=== PATIENT | female | born 1985 | race Caucasian/White ===

== ENCOUNTER 2019-03-05 16:53 | Emergency (ER) | payer MEDICARE, MEDICAID ==
[~2019-03-05] VITALS: Ht 162.6 cm; Wt 88.5 kg
[~2019-03-05 16:53] MED LIST: ALPR0.25 PO; APIX5TAB PO; ARIP1TAB9 PO; CYCL1POW25 XX; DIVA125T12 PO; DULO60CA PO; HYDR2TAB58 PO; IVAB1.7T PO; LEVE500T22 PO; MAGN400T5 PO; OME20T PO; OXYC1CAP5 PO; TIOT1AER2 IN
[2019-03-05 20:49] LABS: Basophils # (auto) 0 uL; Basophils % (auto) 0.6 % (0.0-2.0); Eosinophils # (auto) 0 uL; Eosinophils % (auto) 0.7 % (0.0-7.0); Hemoglobin 13.4 g/dL (12.2-16.2); Lymphocytes # (auto) 1.9 uL; Lymphocytes % (auto) 46.2 % (10.0-50.0); Mean Corpuscular Hgb Conc. 32.6 g/dL (32.0-36.0); Mean Corpuscular Volume 89.2 fL (80.0-100.0); Monocytes # (auto) 0.5 uL; Monocytes % (auto) 11.7 % (0.0-12.0); Neutrophils # (auto) 1.6 uL; Neutrophils % (auto) 40.8 % (37.0-80.0); Nucleated Red Blood Cells % 0.1 %; Platelet Count (auto) 226 10^3/uL (140-450); Red Cell Distribution Width 15.4 % (11.8-14.3)
[2019-03-05 21:07] LABS: Albumin 3.3 g/dL (3.4-5.0); Calcium 8.3 mg/dL (8.5-10.1)
[2019-03-05 21:09] LABS: Bilirubin, Total 0.2 mg/dL (0.2-1.0); Total Protein 8.1 g/dL (6.4-8.2)
[2019-03-06 00:13] VITALS: BP 116/70
== END 2019-03-06 02:27 | disposition left against medical advice (07) ==
LOC: ER 16:56
DX: R05 Cough (principal); Z53.21 Procedure and treatment not carried out due to patient leaving prior to being seen by health care provider
CPT/HCPCS: 36415; 71045; 80053; 84702; 85025

== ENCOUNTER 2020-03-25 11:33 | Inpatient (IN) | payer MEDICARE, MEDICAID ==
[~2020-03-25] VITALS: Ht 218.4 cm; Wt 86.5 kg
[2020-03-25 01:32] VITALS: BP 113/67
[~2020-03-25 11:33] MED LIST changes: -LEVE500T22 PO; +LEVE500T32 PO; +MAGN400T40 PO; -MAGN400T5 PO
[2020-03-25] MEDS ORDERED: AZITHROMYCIN 500MG/ 250ML 250 ML IV ONE (11:45)
[2020-03-25] MEDS ORDERED: ASCORBIC ACID 500 MG TAB PO ONE (11:45)
[2020-03-25] MEDS ORDERED: ZINC SULFATE 220mg CAP or TAB PO ONE (11:45)
[2020-03-25] MEDS ORDERED: methylPREDNISolone SOD SUCC 125 MG/2 ML VL IV ONE (11:45)
[2020-03-25] MEDS ORDERED: ACETAMINOPHEN 325 MG TAB PO ONE (12:45)
[2020-03-25] MEDS ORDERED: ENOXAPARIN SOD 100 MG/1 ML SYRINGE SC ONE ×2 (14:00→14:45)
[2020-03-25 15:22] LABS: Basophils # (auto) 0 10 ^3/uL (0-0.2); Basophils % (auto) 0.3 % (0.0-2.0); Eosinophils # (auto) 0 10 ^3/uL (0-0.8); Eosinophils % (auto) 0.1 % (0.0-7.0); Hematocrit 39.4 % (36.0-46.0); Hemoglobin 13.7 g/dL (12.2-16.2); Lymphocytes # (auto) 1.6 10 ^3/uL (0.4-5.4); Lymphocytes % (auto) 37.4 % (10.0-50.0); Mean Corpuscular Hemoglobin 31.6 pg (28.0-32.0); Mean Corpuscular Hgb Conc. 34.8 g/dL (32.0-36.0); Mean Corpuscular Volume 90.9 fL (80.0-100.0); Monocytes # (auto) 0.5 10 ^3/uL (0-1.3); Monocytes % (auto) 11.6 % (0.0-12.0); Neutrophils # (auto) 2.1 10 ^3/uL (1.6-8.6); Neutrophils % (auto) 50.6 % (37.0-80.0); Nucleated Red Blood Cells % 0.2 %; Platelet Count (auto) 236 10^3/uL (140-450); Red Blood Cells 4.33 10^6/uL (4.0-5.20); Red Cell Distribution Width 15.1 % (11.8-14.3); White Blood Cell 4.2 10^3/uL (4.4-10.8)
[2020-03-25 15:32] LABS: Albumin 3.1 g/dL (3.4-5.0); Anion Gap 8 (5-15); Blood Urea Nitrogen 11 mg/dL (7-18); Calcium 8.1 mg/dL (8.5-10.1); Carbon Dioxide 25 mmol/L (21-32); Chloride 105 mmol/L (98-107); Glucose 83 mg/dL (74-106); Potassium 3.4 mmol/L (3.5-5.1); Sodium 138 mmol/L (136-145)
[2020-03-25 15:38] LABS: Alanine Aminotransferase 40 U/L (13-56); Alkaline Phosphatase 79 U/L (45-117); Aspartate Aminotransferase 21 U/L (15-37); BUN/Creatinine Ratio 22.9; Bilirubin, Total 0.3 mg/dL (0.2-1.0); CRP High Sensitivity 0.54 mg/dL (< 0.3); GFR African American 190 mL/min; GFR Non-African American 157 mL/min; Lactate Dehydrogenase 161 U/L (84-246); Total Protein 7.6 g/dL (6.4-8.2)
[2020-03-25] MEDS ORDERED: NITROGLYCERIN 0.4 MG SL TAB SL PRN (16:00)
[2020-03-25] MEDS ORDERED: MORPHINE SULF INJ 2 MG/ML SYRINGE 1ML IV PRN (16:00)
[2020-03-25] MEDS: HYDROmorphone HCL 2 MG TAB PO SCH (17:56)
[2020-03-25] MEDS ORDERED: PROMETHAZINE HCL 25 MG/ML 1ML IV ONE (21:00)
[2020-03-25] MEDS ORDERED: ALBUTEROL SULF HFA 90MCG INH 200DOSE IN SCH (22:00)
[2020-03-25] MEDS ORDERED: APIXABAN 5 MG TAB PO SCH (22:00)
[2020-03-25] MEDS: BUDESONIDE (INHALATION) 180 MCG IH IN SCH (22:00)
[2020-03-25] MEDS: levETIRAcetam 500 MG TAB PO SCH ×2 (22:00→22:34)
[2020-03-25] MEDS: ALBUTEROL SULF HFA 90MCG INH 200DOSE IN SCH (22:00)
[2020-03-25] MEDS ORDERED: ALPRAZolam 0.25 MG TAB PO PRN (22:00)
[2020-03-25] MEDS: DOXYCYCLINE 100MG/250ML 250 ML IV SCH (22:33)
[2020-03-25] MEDS: IVABRADINE 5 MG TAB PO SCH (22:33)
[2020-03-25 23:40] VITALS: BP 113/67
[2020-03-26] MEDS: HYDROmorphone HCL 2 MG TAB PO SCH ×5 (00:21→23:48)
[2020-03-26 00:22] VITALS: BP 103/64
[2020-03-26] MEDS ORDERED: CYA100I PO (01:29)
[2020-03-26] MEDS ORDERED: MIRT30TA PO (01:29)
[2020-03-26] MEDS ORDERED: ALBUAER3 IN (01:29)
[2020-03-26] MEDS ORDERED: DICY10CA12 PO (01:29)
[2020-03-26] MEDS ORDERED: FURO20TA3 PO (01:29)
[2020-03-26] MEDS ORDERED: POTA10TA51 PO (01:29)
[2020-03-26] MEDS ORDERED: HYDR2TAB58 PO (01:29)
[2020-03-26] MEDS ORDERED: METH750T3 PO (01:29)
[2020-03-26] MEDS ORDERED: LORazepam 2MG/ML-1ML VIAL IV PRN (04:45)
[2020-03-26 05:43] LABS: Urine Bacteria FEW /hpf (None Seen); Urine Blood Negative /uL (Negative); Urine Mucus FEW (None Seen); Urine Specific Gravity 1.013 (1.001-1.035); Urine WBC 43 /hpf (0 - 5)
[2020-03-26] MEDS: ALBUTEROL SULF HFA 90MCG INH 200DOSE IN SCH ×3 (05:49→21:13)
[2020-03-26] MEDS: BUDESONIDE (INHALATION) 180 MCG IH IN SCH ×2 (05:49→21:14)
[2020-03-26 06:13] VITALS: BP 107/63
[2020-03-26 07:30] LABS: Basophils # (auto) 0 10 ^3/uL (0-0.2); Basophils % (auto) 0.1 % (0.0-2.0); Eosinophils # (auto) 0 10 ^3/uL (0-0.8); Hematocrit 41.3 % (36.0-46.0); Hemoglobin 13.9 g/dL (12.2-16.2); Lymphocytes # (auto) 1.2 10 ^3/uL (0.4-5.4); Mean Corpuscular Hemoglobin 30.7 pg (28.0-32.0); Mean Corpuscular Hgb Conc. 33.7 g/dL (32.0-36.0); Mean Corpuscular Volume 90.9 fL (80.0-100.0); Monocytes # (auto) 0.3 10 ^3/uL (0-1.3); Monocytes % (auto) 9.3 % (0.0-12.0); Neutrophils # (auto) 1.7 10 ^3/uL (1.6-8.6); Neutrophils % (auto) 53.6 % (37.0-80.0); Nucleated Red Blood Cells % 0.5 %; Platelet Count (auto) 250 10^3/uL (140-450); Red Blood Cells 4.55 10^6/uL (4.0-5.20); Red Cell Distribution Width 15.5 % (11.8-14.3); White Blood Cell 3.2 10^3/uL (4.4-10.8)
[2020-03-26] MEDS ORDERED: LEVO50TA7 PO (07:41)
[2020-03-26 07:49] LABS: Potassium 3.7 mmol/L (3.5-5.1)
[2020-03-26 07:55] LABS: Albumin 3.1 g/dL (3.4-5.0); Calcium 8.5 mg/dL (8.5-10.1)
[2020-03-26 07:58] LABS: Bilirubin, Total 0.3 mg/dL (0.2-1.0); Total Protein 8.1 g/dL (6.4-8.2)
[2020-03-26 08:00] VITALS: BP 111/78
[2020-03-26] MEDS: levETIRAcetam 500 MG TAB PO SCH ×2 (10:00→23:16)
[2020-03-26] MEDS: DexAMETHasone SOD PHOS 10MG/1ML VIAL INJ IV SCH (10:30)
[2020-03-26] MEDS: ZINC SULFATE 220mg CAP or TAB PO SCH (10:30)
[2020-03-26] MEDS: DOXYCYCLINE 100MG/250ML 250 ML IV SCH ×2 (10:30→22:18)
[2020-03-26] MEDS: DULoxetine HCL 30 MG CAP PO SCH (10:32)
[2020-03-26] MEDS: ENOXAPARIN SOD 100 MG/1 ML SYRINGE SC SCH ×2 (10:32→22:19)
[2020-03-26] MEDS: IVABRADINE 5 MG TAB PO SCH ×2 (10:32→22:18)
[2020-03-26] MEDS: MAGNESIUM OXIDE 400 MG TAB PO SCH (10:35)
[2020-03-26] MEDS: ASCORBIC ACID 1,000 MG TAB PO SCH (10:35)
[2020-03-26] MEDS: CHOLECALCIFEROL (VITD3) 2,000 UNIT CAP PO SCH (10:35)
[2020-03-26] MEDS: PANTOPRAZOLE 40 MG TAB PO SCH ×2 (10:36→22:18)
[2020-03-26 12:00] VITALS: BP 121/63
[2020-03-26] MEDS: METHOCARBAMOL 500 MG TAB PO SCH ×2 (12:00→18:00)
[2020-03-26 16:44] VITALS: BP 118/68
[2020-03-26] MEDS: ALPRAZolam 0.25 MG TAB PO PRN (20:59)
[2020-03-26 22:00] VITALS: BP 114/75
[2020-03-27] MEDS: METHOCARBAMOL 500 MG TAB PO SCH ×5 (00:19→23:56)
[2020-03-27 05:00] VITALS: BP 115/74
[2020-03-27] MEDS: HYDROmorphone HCL 2 MG TAB PO SCH ×4 (05:56→23:56)
[2020-03-27] MEDS: ALBUTEROL SULF HFA 90MCG INH 200DOSE IN SCH ×3 (06:14→21:38)
[2020-03-27] MEDS: BUDESONIDE (INHALATION) 180 MCG IH IN SCH ×2 (06:15→21:38)
[2020-03-27] MEDS: LEVOTHYROXINE SODIUM 50 MCG TAB PO SCH (08:01)
[2020-03-27 08:53] VITALS: BP 107/64
[2020-03-27] MEDS: levETIRAcetam 500 MG TAB PO SCH ×3 (10:00→22:00)
[2020-03-27] MEDS: DexAMETHasone SOD PHOS 10MG/1ML VIAL INJ IV SCH (10:21)
[2020-03-27] MEDS: DOXYCYCLINE 100MG/250ML 250 ML IV SCH ×2 (10:21→23:13)
[2020-03-27] MEDS: ZINC SULFATE 220mg CAP or TAB PO SCH (10:21)
[2020-03-27] MEDS: DULoxetine HCL 30 MG CAP PO SCH (10:22)
[2020-03-27] MEDS: IVABRADINE 5 MG TAB PO SCH ×2 (10:22→23:16)
[2020-03-27] MEDS: CHOLECALCIFEROL (VITD3) 2,000 UNIT CAP PO SCH (10:23)
[2020-03-27] MEDS: MAGNESIUM OXIDE 400 MG TAB PO SCH (10:23)
[2020-03-27] MEDS: PANTOPRAZOLE 40 MG TAB PO SCH ×2 (10:23→23:14)
[2020-03-27] MEDS: ASCORBIC ACID 1,000 MG TAB PO SCH (10:23)
[2020-03-27] MEDS: ENOXAPARIN SOD 100 MG/1 ML SYRINGE SC SCH ×2 (10:24→23:14)
[2020-03-27 12:05] LABS: Basophils # (auto) 0 10 ^3/uL (0-0.2); Basophils % (auto) 0.2 % (0.0-2.0); Eosinophils # (auto) 0 10 ^3/uL (0-0.8); Hematocrit 38.2 % (36.0-46.0); Lymphocytes # (auto) 1.9 10 ^3/uL (0.4-5.4); Lymphocytes % (auto) 26.3 % (10.0-50.0); Mean Corpuscular Hgb Conc. 34.2 g/dL (32.0-36.0); Mean Corpuscular Volume 90.6 fL (80.0-100.0); Monocytes # (auto) 0.5 10 ^3/uL (0-1.3); Monocytes % (auto) 7.1 % (0.0-12.0); Neutrophils # (auto) 4.9 10 ^3/uL (1.6-8.6); Neutrophils % (auto) 66.4 % (37.0-80.0); Platelet Count (auto) 261 10^3/uL (140-450); Red Blood Cells 4.21 10^6/uL (4.0-5.20); Red Cell Distribution Width 15.4 % (11.8-14.3); White Blood Cell 7.4 10^3/uL (4.4-10.8)
[2020-03-27 12:33] LABS: BUN/Creatinine Ratio 33.3; Bilirubin, Total 0.3 mg/dL (0.2-1.0); CRP High Sensitivity 0.25 mg/dL (< 0.3); Calcium 8.3 mg/dL (8.5-10.1); Magnesium 2.1 mg/dL (1.6-2.6); Phosphorus 2.4 mg/dL (2.5-4.90); Potassium 3.1 mmol/L (3.5-5.1); Total Protein 7.4 g/dL (6.4-8.2)
[2020-03-27 12:49] VITALS: BP 106/61
[2020-03-27] MEDS ORDERED: POTASSIUM EFFERVESENT TAB 25 MEQ PO ONE (15:30)
[2020-03-27 16:32] VITALS: BP 100/55
[2020-03-27] MEDS: ACETAMINOPHEN 500 MG TAB PO PRN ×2 (17:26→23:57)
[2020-03-27] MEDS: DICYCLOMINE HCL 10 MG CAP PO SCH ×2 (18:54→22:00)
[2020-03-27 22:00] VITALS: BP 107/63
[2020-03-27] MEDS ORDERED: POTASSIUM CHL 20 Meq TABLET PO ONE (22:00)
[2020-03-27] MEDS: DOCUSATE SOD 100 MG CAP PO SCH (23:13)
[2020-03-28] VITALS (14 sets, daily range): BP systolic 103–137; BP diastolic 52–70
[2020-03-28] MEDS: BUDESONIDE (INHALATION) 180 MCG IH IN SCH ×2 (05:59→20:58)
[2020-03-28] MEDS: ALBUTEROL SULF HFA 90MCG INH 200DOSE IN SCH ×3 (05:59→20:59)
[2020-03-28] MEDS: METHOCARBAMOL 500 MG TAB PO SCH ×3 (06:00→19:20)
[2020-03-28] MEDS: DICYCLOMINE HCL 10 MG CAP PO SCH ×5 (06:16→21:37)
[2020-03-28] MEDS: HYDROmorphone HCL 2 MG TAB PO SCH ×3 (06:17→19:20)
[2020-03-28] MEDS: LEVOTHYROXINE SODIUM 50 MCG TAB PO SCH (06:55)
[2020-03-28] MEDS: FUROSEMIDE 20 MG/2 ML VIAL IV SCH (10:00)
[2020-03-28] MEDS: DexAMETHasone SOD PHOS 10MG/1ML VIAL INJ IV SCH (11:38)
[2020-03-28] MEDS: DOCUSATE SOD 100 MG CAP PO SCH ×3 (11:39→21:36)
[2020-03-28] MEDS: DULoxetine HCL 30 MG CAP PO SCH (11:39)
[2020-03-28] MEDS: ZINC SULFATE 220mg CAP or TAB PO SCH (11:39)
[2020-03-28] MEDS: MAGNESIUM OXIDE 400 MG TAB PO SCH (11:39)
[2020-03-28] MEDS: DOXYCYCLINE 100MG/250ML 250 ML IV SCH ×2 (11:39→21:14)
[2020-03-28] MEDS: CHOLECALCIFEROL (VITD3) 2,000 UNIT CAP PO SCH (11:40)
[2020-03-28] MEDS: PANTOPRAZOLE 40 MG TAB PO SCH ×2 (11:40→21:15)
[2020-03-28] MEDS: ASCORBIC ACID 1,000 MG TAB PO SCH (11:40)
[2020-03-28] MEDS: ENOXAPARIN SOD 100 MG/1 ML SYRINGE SC SCH ×2 (11:40→21:15)
[2020-03-28] MEDS: LUBIPROSTONE 24 MCG PO PRN ×2 (11:40→21:38)
[2020-03-28] MEDS: IVABRADINE 5 MG TAB PO SCH ×2 (11:41→21:15)
[2020-03-28 12:27] LABS: Albumin 2.8 g/dL (3.4-5.0); Calcium 7.8 mg/dL (8.5-10.1); Magnesium 2.1 mg/dL (1.6-2.6); Potassium 3.8 mmol/L (3.5-5.1)
[2020-03-28 12:32] LABS: BUN/Creatinine Ratio 22.4; Bilirubin, Total 0.3 mg/dL (0.2-1.0)
[2020-03-28] MEDS: ALPRAZolam 0.25 MG TAB PO PRN (14:10)
[2020-03-28] MEDS: ACETAMINOPHEN 500 MG TAB PO PRN (14:11)
[2020-03-29] MEDS: HYDROmorphone HCL 2 MG TAB PO SCH ×5 (00:07→23:51)
[2020-03-29] MEDS: METHOCARBAMOL 500 MG TAB PO SCH ×5 (00:08→23:51)
[2020-03-29] MEDS: ACETAMINOPHEN 500 MG TAB PO PRN ×3 (02:21→17:38)
[2020-03-29 05:00] VITALS: BP 111/61
[2020-03-29] MEDS: DICYCLOMINE HCL 10 MG CAP PO SCH ×3 (06:00→17:39)
[2020-03-29 06:02] LABS: Basophils # (auto) 0 10 ^3/uL (0-0.2); Basophils % (auto) 0.1 % (0.0-2.0); Eosinophils # (auto) 0 10 ^3/uL (0-0.8); Hematocrit 38.2 % (36.0-46.0); Hemoglobin 12.4 g/dL (12.2-16.2); Lymphocytes # (auto) 1.4 10 ^3/uL (0.4-5.4); Lymphocytes % (auto) 28.2 % (10.0-50.0); Mean Corpuscular Hemoglobin 29.5 pg (28.0-32.0); Mean Corpuscular Hgb Conc. 32.5 g/dL (32.0-36.0); Mean Corpuscular Volume 90.9 fL (80.0-100.0); Monocytes # (auto) 0.2 10 ^3/uL (0-1.3); Neutrophils # (auto) 3.3 10 ^3/uL (1.6-8.6); Neutrophils % (auto) 66.7 % (37.0-80.0); Nucleated Red Blood Cells % 0.1 %; Platelet Count (auto) 228 10^3/uL (140-450); Red Cell Distribution Width 15.5 % (11.8-14.3); White Blood Cell 4.9 10^3/uL (4.4-10.8)
[2020-03-29] MEDS: LEVOTHYROXINE SODIUM 50 MCG TAB PO SCH ×2 (06:15→06:16)
[2020-03-29] MEDS: ALBUTEROL SULF HFA 90MCG INH 200DOSE IN SCH ×4 (06:31→21:11)
[2020-03-29] MEDS: BUDESONIDE (INHALATION) 180 MCG IH IN SCH ×2 (06:31→21:11)
[2020-03-29 06:36] LABS: Potassium 3.1 mmol/L (3.5-5.1)
[2020-03-29 06:48] LABS: Albumin 2.8 g/dL (3.4-5.0); Bilirubin, Total 0.2 mg/dL (0.2-1.0); Calcium 8.1 mg/dL (8.5-10.1); Total Protein 7.2 g/dL (6.4-8.2)
[2020-03-29] MEDS ORDERED: POTASSIUM CHL 20 Meq TABLET PO ONE (08:15)
[2020-03-29] MEDS ORDERED: METOCLOPRAMIDE HCL 5MG/ml INJ 2ml VIAL IV ONE (08:15)
[2020-03-29 09:05] VITALS: BP 97/64
[2020-03-29] MEDS: ZINC SULFATE 220mg CAP or TAB PO SCH (10:00)
[2020-03-29] MEDS: CHOLECALCIFEROL (VITD3) 2,000 UNIT CAP PO SCH (10:00)
[2020-03-29] MEDS: ASCORBIC ACID 1,000 MG TAB PO SCH (10:00)
[2020-03-29] MEDS: FUROSEMIDE 20 MG/2 ML VIAL IV SCH (10:00)
[2020-03-29] MEDS: DOCUSATE SOD 100 MG CAP PO SCH ×2 (10:00→21:56)
[2020-03-29] MEDS: DexAMETHasone SOD PHOS 10MG/1ML VIAL INJ IV SCH (10:28)
[2020-03-29] MEDS: IVABRADINE 5 MG TAB PO SCH ×2 (10:28→22:09)
[2020-03-29] MEDS: ENOXAPARIN SOD 100 MG/1 ML SYRINGE SC SCH ×2 (10:28→21:56)
[2020-03-29] MEDS: DOXYCYCLINE 100MG/250ML 250 ML IV SCH ×2 (10:28→21:55)
[2020-03-29] MEDS: MAGNESIUM OXIDE 400 MG TAB PO SCH (10:28)
[2020-03-29] MEDS: PANTOPRAZOLE 40 MG TAB PO SCH (10:28)
[2020-03-29] MEDS: DULoxetine HCL 30 MG CAP PO SCH (10:28)
[2020-03-29] MEDS: PROMETHAZINE HCL 25 MG/ML 1ML IV PRN ×2 (10:28→17:04)
[2020-03-29 13:00] VITALS: BP 124/73
[2020-03-29] MEDS: SUCRALFATE 1 GM/10 ML ORAL SUSP PO SCH ×2 (16:49→21:55)
[2020-03-29 17:09] VITALS: BP 112/68
[2020-03-29] MEDS ORDERED: DICYCLOMINE HCL 10 MG CAP PO PRN (18:00)
[2020-03-29 20:00] VITALS: BP 100/67
[2020-03-29 21:00] VITALS: BP 100/67
[2020-03-29] MEDS: PANTOPRAZOLE 40 MG/10 ML VIAL INJ IV SCH (21:55)
[2020-03-30 05:00] VITALS: BP 107/63
[2020-03-30] MEDS: HYDROcodone-ACET 5/325MG TAB PO PRN ×2 (05:12→22:20)
[2020-03-30] MEDS: HYDROmorphone HCL 2 MG TAB PO SCH ×3 (06:00→17:24)
[2020-03-30] MEDS: SUCRALFATE 1 GM/10 ML ORAL SUSP PO SCH ×4 (06:40→22:19)
[2020-03-30] MEDS: METHOCARBAMOL 500 MG TAB PO SCH ×3 (06:40→17:24)
[2020-03-30] MEDS: LEVOTHYROXINE SODIUM 50 MCG TAB PO SCH (06:40)
[2020-03-30] MEDS: ALBUTEROL SULF HFA 90MCG INH 200DOSE IN SCH ×3 (07:00→21:24)
[2020-03-30] MEDS: BUDESONIDE (INHALATION) 180 MCG IH IN SCH ×2 (07:03→21:24)
[2020-03-30 07:28] LABS: Basophils # (auto) 0 10 ^3/uL (0-0.2); Basophils % (auto) 0.1 % (0.0-2.0); Eosinophils # (auto) 0 10 ^3/uL (0-0.8); Hematocrit 37.4 % (36.0-46.0); Hemoglobin 12.7 g/dL (12.2-16.2); Lymphocytes # (auto) 1.9 10 ^3/uL (0.4-5.4); Lymphocytes % (auto) 34.6 % (10.0-50.0); Mean Corpuscular Hemoglobin 31.1 pg (28.0-32.0); Mean Corpuscular Hgb Conc. 34.1 g/dL (32.0-36.0); Mean Corpuscular Volume 91.2 fL (80.0-100.0); Monocytes # (auto) 0.1 10 ^3/uL (0-1.3); Monocytes % (auto) 2.4 % (0.0-12.0); Neutrophils # (auto) 3.4 10 ^3/uL (1.6-8.6); Neutrophils % (auto) 62.9 % (37.0-80.0); Nucleated Red Blood Cells % 0.1 %; Platelet Count (auto) 201 10^3/uL (140-450); Red Cell Distribution Width 15.8 % (11.8-14.3); White Blood Cell 5.4 10^3/uL (4.4-10.8)
[2020-03-30 07:57] LABS: Albumin 2.6 g/dL (3.4-5.0); BUN/Creatinine Ratio 29.3; Bilirubin, Total 0.3 mg/dL (0.2-1.0); Calcium 7.8 mg/dL (8.5-10.1); Magnesium 2.2 mg/dL (1.6-2.6); Potassium 3.4 mmol/L (3.5-5.1)
[2020-03-30 09:00] VITALS: BP 117/59
[2020-03-30] MEDS: ZINC SULFATE 220mg CAP or TAB PO SCH ×2 (10:00→10:28)
[2020-03-30] MEDS: DOCUSATE SOD 100 MG CAP PO SCH ×2 (10:00→22:00)
[2020-03-30] MEDS: DULoxetine HCL 30 MG CAP PO SCH (10:28)
[2020-03-30] MEDS: ASCORBIC ACID 1,000 MG TAB PO SCH (10:28)
[2020-03-30] MEDS: DexAMETHasone SOD PHOS 10MG/1ML VIAL INJ IV SCH (10:28)
[2020-03-30] MEDS: PANTOPRAZOLE 40 MG/10 ML VIAL INJ IV SCH ×2 (10:28→22:19)
[2020-03-30] MEDS: FUROSEMIDE 20 MG/2 ML VIAL IV SCH (10:28)
[2020-03-30] MEDS: DOXYCYCLINE 100MG/250ML 250 ML IV SCH (10:28)
[2020-03-30] MEDS: FLORASTOR (S. BOULARDII) 250 MG CAP PO SCH (10:28)
[2020-03-30] MEDS: MAGNESIUM OXIDE 400 MG TAB PO SCH (10:28)
[2020-03-30] MEDS: ENOXAPARIN SOD 100 MG/1 ML SYRINGE SC SCH ×2 (10:28→22:19)
[2020-03-30] MEDS: CHOLECALCIFEROL (VITD3) 2,000 UNIT CAP PO SCH (10:28)
[2020-03-30] MEDS: IVABRADINE 5 MG TAB PO SCH ×2 (10:28→22:19)
[2020-03-30] MEDS: ACETAMINOPHEN 325 MG TAB PO PRN (11:57)
[2020-03-30 13:00] VITALS: BP 105/71
[2020-03-30] MEDS ORDERED: POTASSIUM CHL 20 Meq TABLET PO ONE (16:45)
[2020-03-30 17:00] VITALS: BP 102/58
[2020-03-30 20:00] VITALS: BP 95/62
[2020-03-30] MEDS ORDERED: REMDESIVIR 200 MG in NS 210ml LOADING DOSE ADULT IV ONE (20:00)
[2020-03-30] MEDS: PROMETHAZINE HCL 25 MG/ML 1ML IV PRN (20:22)
[2020-03-30 22:00] VITALS: BP 94/59
[2020-03-31] MEDS: HYDROmorphone HCL 2 MG TAB PO SCH ×4 (01:01→18:00)
[2020-03-31] MEDS: METHOCARBAMOL 500 MG TAB PO SCH ×4 (01:01→18:00)
[2020-03-31] MEDS: THROAT LOZENGES(CEPASTAT) MT PRN (03:01)
[2020-03-31 05:00] VITALS: BP 95/67
[2020-03-31] MEDS: BUDESONIDE (INHALATION) 180 MCG IH IN SCH ×2 (06:07→20:33)
[2020-03-31] MEDS: ALBUTEROL SULF HFA 90MCG INH 200DOSE IN SCH ×3 (06:07→20:33)
[2020-03-31] MEDS: SUCRALFATE 1 GM/10 ML ORAL SUSP PO SCH ×5 (06:15→22:03)
[2020-03-31] MEDS: LEVOTHYROXINE SODIUM 50 MCG TAB PO SCH (06:15)
[2020-03-31 07:15] LABS: Basophils # (auto) 0 10 ^3/uL (0-0.2); Basophils % (auto) 0.2 % (0.0-2.0); Eosinophils # (auto) 0 10 ^3/uL (0-0.8); Hematocrit 38.7 % (36.0-46.0); Hemoglobin 12.8 g/dL (12.2-16.2); Lymphocytes # (auto) 1.8 10 ^3/uL (0.4-5.4); Lymphocytes % (auto) 33.5 % (10.0-50.0); Mean Corpuscular Hemoglobin 30.1 pg (28.0-32.0); Mean Corpuscular Hgb Conc. 33.1 g/dL (32.0-36.0); Monocytes # (auto) 0.2 10 ^3/uL (0-1.3); Monocytes % (auto) 3.5 % (0.0-12.0); Neutrophils # (auto) 3.3 10 ^3/uL (1.6-8.6); Neutrophils % (auto) 62.8 % (37.0-80.0); Nucleated Red Blood Cells % 0.2 %; Platelet Count (auto) 207 10^3/uL (140-450); Red Blood Cells 4.25 10^6/uL (4.0-5.20); White Blood Cell 5.3 10^3/uL (4.4-10.8)
[2020-03-31 07:25] LABS: Albumin 2.5 g/dL (3.4-5.0); Calcium 8.1 mg/dL (8.5-10.1); Magnesium 2.1 mg/dL (1.6-2.6); Potassium 3.3 mmol/L (3.5-5.1)
[2020-03-31 07:28] LABS: BUN/Creatinine Ratio 19.3; Bilirubin, Total 0.3 mg/dL (0.2-1.0); Total Protein 6.8 g/dL (6.4-8.2)
[2020-03-31 08:36] VITALS: BP 101/68
[2020-03-31] MEDS: IVABRADINE 5 MG TAB PO SCH ×2 (10:00→22:03)
[2020-03-31] MEDS ORDERED: POTASSIUM CHL 20 Meq TABLET PO SCH (10:00)
[2020-03-31] MEDS: ZINC SULFATE 220mg CAP or TAB PO SCH (10:03)
[2020-03-31] MEDS: DexAMETHasone SOD PHOS 10MG/1ML VIAL INJ IV SCH (10:03)
[2020-03-31] MEDS: PANTOPRAZOLE 40 MG/10 ML VIAL INJ IV SCH ×2 (10:03→22:03)
[2020-03-31] MEDS: DOCUSATE SOD 100 MG CAP PO SCH ×2 (10:04→22:03)
[2020-03-31] MEDS: FLORASTOR (S. BOULARDII) 250 MG CAP PO SCH (10:05)
[2020-03-31] MEDS: DULoxetine HCL 30 MG CAP PO SCH (10:05)
[2020-03-31] MEDS: MAGNESIUM OXIDE 400 MG TAB PO SCH (10:05)
[2020-03-31] MEDS: ASCORBIC ACID 1,000 MG TAB PO SCH (10:06)
[2020-03-31] MEDS: ENOXAPARIN SOD 100 MG/1 ML SYRINGE SC SCH ×2 (10:06→22:03)
[2020-03-31] MEDS: CHOLECALCIFEROL (VITD3) 2,000 UNIT CAP PO SCH (10:06)
[2020-03-31] MEDS: FUROSEMIDE 20 MG/2 ML VIAL IV SCH (10:06)
[2020-03-31] MEDS: ACETAMINOPHEN 325 MG TAB PO PRN (11:49)
[2020-03-31 13:00] VITALS: BP 98/60
[2020-03-31 17:00] VITALS: BP 103/57
[2020-03-31] MEDS: REMDESIVIR 100mg in NS 230ml DAILYx4DAYS (NO VENT) IV SCH (20:44)
[2020-03-31] MEDS: PROMETHAZINE HCL 25 MG/ML 1ML IV PRN (20:54)
[2020-03-31 22:00] VITALS: BP 92/65
[2020-04-01] MEDS: HYDROmorphone HCL 2 MG TAB PO SCH ×4 (00:10→18:53)
[2020-04-01] MEDS: METHOCARBAMOL 500 MG TAB PO SCH ×5 (00:11→19:58)
[2020-04-01 00:21] VITALS: BP 92/65
[2020-04-01 05:00] VITALS: BP 96/58
[2020-04-01] MEDS: SUCRALFATE 1 GM/10 ML ORAL SUSP PO SCH ×4 (06:35→21:56)
[2020-04-01] MEDS: LEVOTHYROXINE SODIUM 50 MCG TAB PO SCH (06:35)
[2020-04-01 06:38] LABS: Basophils # (auto) 0 10 ^3/uL (0-0.2); Basophils % (auto) 0.6 % (0.0-2.0); Eosinophils # (auto) 0 10 ^3/uL (0-0.8); Hematocrit 39.3 % (36.0-46.0); Hemoglobin 12.6 g/dL (12.2-16.2); Lymphocytes # (auto) 1.6 10 ^3/uL (0.4-5.4); Lymphocytes % (auto) 42.2 % (10.0-50.0); Mean Corpuscular Hemoglobin 29.4 pg (28.0-32.0); Mean Corpuscular Hgb Conc. 32.1 g/dL (32.0-36.0); Mean Corpuscular Volume 91.4 fL (80.0-100.0); Monocytes # (auto) 0.1 10 ^3/uL (0-1.3); Neutrophils % (auto) 53.2 % (37.0-80.0); Nucleated Red Blood Cells % 0.4 %; Platelet Count (auto) 198 10^3/uL (140-450); Red Blood Cells 4.29 10^6/uL (4.0-5.20); White Blood Cell 3.7 10^3/uL (4.4-10.8)
[2020-04-01] MEDS: ALBUTEROL SULF HFA 90MCG INH 200DOSE IN SCH ×3 (06:55→21:44)
[2020-04-01] MEDS: BUDESONIDE (INHALATION) 180 MCG IH IN SCH ×2 (06:55→21:44)
[2020-04-01 06:56] LABS: Albumin 2.5 g/dL (3.4-5.0); Calcium 8.4 mg/dL (8.5-10.1); Potassium 3.2 mmol/L (3.5-5.1)
[2020-04-01 06:59] LABS: BUN/Creatinine Ratio 30.6; Magnesium 2.1 mg/dL (1.6-2.6)
[2020-04-01 07:02] LABS: Bilirubin, Total 0.3 mg/dL (0.2-1.0)
[2020-04-01 09:00] VITALS: BP 112/63
[2020-04-01] MEDS: PANTOPRAZOLE 40 MG/10 ML VIAL INJ IV SCH ×2 (09:49→21:56)
[2020-04-01] MEDS: ZINC SULFATE 220mg CAP or TAB PO SCH (09:49)
[2020-04-01] MEDS: DOCUSATE SOD 100 MG CAP PO SCH ×2 (09:49→21:56)
[2020-04-01] MEDS: DexAMETHasone SOD PHOS 10MG/1ML VIAL INJ IV SCH (09:49)
[2020-04-01] MEDS: IVABRADINE 5 MG TAB PO SCH ×2 (09:49→21:57)
[2020-04-01] MEDS: ENOXAPARIN SOD 100 MG/1 ML SYRINGE SC SCH ×2 (09:50→21:57)
[2020-04-01] MEDS: DULoxetine HCL 30 MG CAP PO SCH (09:50)
[2020-04-01] MEDS: ASCORBIC ACID 1,000 MG TAB PO SCH (09:50)
[2020-04-01] MEDS: FLORASTOR (S. BOULARDII) 250 MG CAP PO SCH (09:50)
[2020-04-01] MEDS: MAGNESIUM OXIDE 400 MG TAB PO SCH (09:50)
[2020-04-01] MEDS: CHOLECALCIFEROL (VITD3) 2,000 UNIT CAP PO SCH (09:50)
[2020-04-01] MEDS: FUROSEMIDE 20 MG/2 ML VIAL IV SCH (09:53)
[2020-04-01] MEDS ORDERED: POTASSIUM CHL 20 Meq TABLET PO ONE (11:30)
[2020-04-01] MEDS: DOXYCYCLINE 100MG/250ML 250 ML IV SCH ×2 (12:12→21:56)
[2020-04-01 13:00] VITALS: BP 107/64
[2020-04-01] MEDS ORDERED: PIPERACILLIN-TAZOB 3.375GM 100 ML IV SCH (14:00)
[2020-04-01 15:57] LABS: Urine Bacteria FEW /hpf (None Seen); Urine Blood Negative /uL (Negative); Urine Mucus FEW (None Seen); Urine Specific Gravity 1.012 (1.001-1.035); Urine WBC 1 /hpf (0 - 5)
[2020-04-01 17:24] VITALS: BP 111/69
[2020-04-01] MEDS: REMDESIVIR 100mg in NS 230ml DAILYx4DAYS (NO VENT) IV SCH (20:13)
[2020-04-01 21:00] VITALS: BP 100/68
[2020-04-02] MEDS: HYDROmorphone HCL 2 MG TAB PO SCH ×4 (00:26→18:22)
[2020-04-02] MEDS: METHOCARBAMOL 500 MG TAB PO SCH ×4 (00:26→18:23)
[2020-04-02 05:00] VITALS: BP 103/59
[2020-04-02] MEDS: LEVOTHYROXINE SODIUM 50 MCG TAB PO SCH (05:28)
[2020-04-02] MEDS: ALBUTEROL SULF HFA 90MCG INH 200DOSE IN SCH ×3 (06:20→22:03)
[2020-04-02] MEDS: BUDESONIDE (INHALATION) 180 MCG IH IN SCH ×2 (06:20→22:03)
[2020-04-02] MEDS: SUCRALFATE 1 GM/10 ML ORAL SUSP PO SCH ×5 (06:45→22:00)
[2020-04-02 08:30] VITALS: BP 117/69
[2020-04-02 08:56] VITALS: BP 117/69
[2020-04-02] MEDS: DOXYCYCLINE 100MG/250ML 250 ML IV SCH ×2 (09:31→22:58)
[2020-04-02] MEDS: DexAMETHasone SOD PHOS 10MG/1ML VIAL INJ IV SCH (09:31)
[2020-04-02] MEDS: PANTOPRAZOLE 40 MG/10 ML VIAL INJ IV SCH ×2 (09:31→22:58)
[2020-04-02] MEDS: DOCUSATE SOD 100 MG CAP PO SCH ×2 (09:32→22:00)
[2020-04-02] MEDS: FLORASTOR (S. BOULARDII) 250 MG CAP PO SCH (09:32)
[2020-04-02] MEDS: DULoxetine HCL 30 MG CAP PO SCH (09:32)
[2020-04-02] MEDS: ZINC SULFATE 220mg CAP or TAB PO SCH (09:32)
[2020-04-02] MEDS: FLUCONAZOLE 100 MG TAB PO SCH (09:32)
[2020-04-02] MEDS: CHOLECALCIFEROL (VITD3) 2,000 UNIT CAP PO SCH (09:33)
[2020-04-02] MEDS: ASCORBIC ACID 1,000 MG TAB PO SCH (09:33)
[2020-04-02] MEDS: ENOXAPARIN SOD 100 MG/1 ML SYRINGE SC SCH ×2 (09:33→22:59)
[2020-04-02] MEDS: MAGNESIUM OXIDE 400 MG TAB PO SCH (09:33)
[2020-04-02] MEDS: IVABRADINE 5 MG TAB PO SCH ×2 (10:00→22:58)
[2020-04-02] MEDS: FUROSEMIDE 20 MG/2 ML VIAL IV SCH (10:00)
[2020-04-02 11:30] LABS: Basophils # (auto) 0 10 ^3/uL (0-0.2); Basophils % (auto) 0.3 % (0.0-2.0); Eosinophils # (auto) 0 10 ^3/uL (0-0.8); Hematocrit 37.9 % (36.0-46.0); Hemoglobin 12.5 g/dL (12.2-16.2); Lymphocytes # (auto) 1.3 10 ^3/uL (0.4-5.4); Lymphocytes % (auto) 17.4 % (10.0-50.0); Mean Corpuscular Hemoglobin 29.8 pg (28.0-32.0); Mean Corpuscular Hgb Conc. 33.1 g/dL (32.0-36.0); Mean Corpuscular Volume 90.2 fL (80.0-100.0); Monocytes # (auto) 0.4 10 ^3/uL (0-1.3); Monocytes % (auto) 5.1 % (0.0-12.0); Neutrophils # (auto) 5.7 10 ^3/uL (1.6-8.6); Neutrophils % (auto) 77.2 % (37.0-80.0); Nucleated Red Blood Cells % 0.2 %; Platelet Count (auto) 223 10^3/uL (140-450); Red Blood Cells 4.21 10^6/uL (4.0-5.20); Red Cell Distribution Width 15.7 % (11.8-14.3); White Blood Cell 7.4 10^3/uL (4.4-10.8)
[2020-04-02 11:44] LABS: Albumin 2.5 g/dL (3.4-5.0); Calcium 7.9 mg/dL (8.5-10.1); Magnesium 1.8 mg/dL (1.6-2.6)
[2020-04-02 11:55] LABS: BUN/Creatinine Ratio 18.6; Bilirubin, Total 0.3 mg/dL (0.2-1.0); CRP High Sensitivity 2.11 mg/dL (< 0.3); Phosphorus 2.2 mg/dL (2.5-4.90); Total Protein 6.8 g/dL (6.4-8.2)
[2020-04-02 12:31] VITALS: BP 103/63
[2020-04-02] MEDS: PROMETHAZINE HCL 25 MG/ML 1ML IV PRN ×2 (12:36→20:46)
[2020-04-02] MEDS: guaiFENesin 200 MG/10 ML UD GT PRN (16:43)
[2020-04-02 17:15] VITALS: BP 123/79
[2020-04-02] MEDS ORDERED: POTASSIUM CHL 20 Meq TABLET PO ONE ×2 (18:00→22:00)
[2020-04-02] MEDS: REMDESIVIR 100mg in NS 230ml DAILYx4DAYS (NO VENT) IV SCH (20:57)
[2020-04-02 21:54] VITALS: BP 107/69
[2020-04-03] MEDS: HYDROmorphone HCL 2 MG TAB PO SCH ×4 (00:12→18:38)
[2020-04-03] MEDS: METHOCARBAMOL 500 MG TAB PO SCH ×4 (00:12→18:39)
[2020-04-03] MEDS: LEVOTHYROXINE SODIUM 50 MCG TAB PO SCH (04:14)
[2020-04-03 05:00] VITALS: BP 101/69
[2020-04-03] MEDS: guaiFENesin 200 MG/10 ML UD GT PRN (05:49)
[2020-04-03] MEDS: BUDESONIDE (INHALATION) 180 MCG IH IN SCH ×2 (06:16→21:50)
[2020-04-03] MEDS: ALBUTEROL SULF HFA 90MCG INH 200DOSE IN SCH ×3 (06:16→21:50)
[2020-04-03] MEDS: SUCRALFATE 1 GM/10 ML ORAL SUSP PO SCH ×4 (06:40→23:23)
[2020-04-03 08:00] VITALS: BP 119/69
[2020-04-03 08:04] LABS: Albumin 2.5 g/dL (3.4-5.0); Calcium 8.6 mg/dL (8.5-10.1); Magnesium 2.2 mg/dL (1.6-2.6)
[2020-04-03 08:22] LABS: Bilirubin, Total 0.3 mg/dL (0.2-1.0); CRP High Sensitivity 2.21 mg/dL (< 0.3); Phosphorus 2.2 mg/dL (2.5-4.90); Total Protein 6.5 g/dL (6.4-8.2)
[2020-04-03 09:00] VITALS: BP 119/64
[2020-04-03 09:15] LABS: Basophils # (auto) 0 10 ^3/uL (0-0.2); Basophils % (auto) 0.2 % (0.0-2.0); Eosinophils # (auto) 0 10 ^3/uL (0-0.8); Hematocrit 38.5 % (36.0-46.0); Hemoglobin 12.3 g/dL (12.2-16.2); Lymphocytes # (auto) 1.8 10 ^3/uL (0.4-5.4); Lymphocytes % (auto) 32.2 % (10.0-50.0); Mean Corpuscular Hemoglobin 29.3 pg (28.0-32.0); Mean Corpuscular Hgb Conc. 31.9 g/dL (32.0-36.0); Mean Corpuscular Volume 91.8 fL (80.0-100.0); Monocytes # (auto) 0.5 10 ^3/uL (0-1.3); Monocytes % (auto) 8.9 % (0.0-12.0); Neutrophils # (auto) 3.4 10 ^3/uL (1.6-8.6); Neutrophils % (auto) 58.7 % (37.0-80.0); Platelet Count (auto) 225 10^3/uL (140-450); Red Blood Cells 4.19 10^6/uL (4.0-5.20); Red Cell Distribution Width 16.3 % (11.8-14.3); White Blood Cell 5.7 10^3/uL (4.4-10.8)
[2020-04-03] MEDS: DOCUSATE SOD 100 MG CAP PO SCH ×2 (10:00→22:00)
[2020-04-03] MEDS: DOXYCYCLINE 100MG/250ML 250 ML IV SCH ×2 (10:38→23:34)
[2020-04-03] MEDS: DexAMETHasone SOD PHOS 10MG/1ML VIAL INJ IV SCH (10:38)
[2020-04-03] MEDS: FUROSEMIDE 20 MG/2 ML VIAL IV SCH (10:39)
[2020-04-03] MEDS: IVABRADINE 5 MG TAB PO SCH ×2 (10:39→22:47)
[2020-04-03] MEDS: PANTOPRAZOLE 40 MG/10 ML VIAL INJ IV SCH ×2 (10:39→22:46)
[2020-04-03] MEDS: ZINC SULFATE 220mg CAP or TAB PO SCH (10:39)
[2020-04-03] MEDS: DULoxetine HCL 30 MG CAP PO SCH (10:39)
[2020-04-03] MEDS: ASCORBIC ACID 1,000 MG TAB PO SCH (10:40)
[2020-04-03] MEDS: MAGNESIUM OXIDE 400 MG TAB PO SCH (10:40)
[2020-04-03] MEDS: FLUCONAZOLE 100 MG TAB PO SCH (10:40)
[2020-04-03] MEDS: FLORASTOR (S. BOULARDII) 250 MG CAP PO SCH (10:40)
[2020-04-03] MEDS: CHOLECALCIFEROL (VITD3) 2,000 UNIT CAP PO SCH (10:41)
[2020-04-03] MEDS: ENOXAPARIN SOD 100 MG/1 ML SYRINGE SC SCH ×2 (10:41→22:48)
[2020-04-03 12:30] VITALS: BP 108/67
[2020-04-03 16:44] VITALS: BP 104/77
[2020-04-03] MEDS: PROMETHAZINE HCL 25 MG/ML 1ML IV PRN (20:02)
[2020-04-03] MEDS: REMDESIVIR 100mg in NS 230ml DAILYx4DAYS (NO VENT) IV SCH (21:27)
[2020-04-03 22:00] VITALS: BP 105/78
[2020-04-04] VITALS (7 sets, daily range): BP systolic 94–119; BP diastolic 54–78
[2020-04-04] MEDS: METHOCARBAMOL 500 MG TAB PO SCH ×4 (01:04→18:00)
[2020-04-04] MEDS: HYDROmorphone HCL 2 MG TAB PO SCH ×4 (01:04→18:00)
[2020-04-04] MEDS: LEVOTHYROXINE SODIUM 50 MCG TAB PO SCH (04:43)
[2020-04-04] MEDS: THROAT LOZENGES(CEPASTAT) MT PRN (04:48)
[2020-04-04] MEDS: BUDESONIDE (INHALATION) 180 MCG IH IN SCH ×2 (05:50→22:37)
[2020-04-04] MEDS: ALBUTEROL SULF HFA 90MCG INH 200DOSE IN SCH ×3 (05:50→22:36)
[2020-04-04] MEDS ORDERED: SODIUM CHLORIDE 0.9% 500 ML IV ONE (06:15)
[2020-04-04] MEDS: SUCRALFATE 1 GM/10 ML ORAL SUSP PO SCH ×4 (06:59→21:37)
[2020-04-04] MEDS: DexAMETHasone SOD PHOS 10MG/1ML VIAL INJ IV SCH (08:51)
[2020-04-04] MEDS: DOCUSATE SOD 100 MG CAP PO SCH ×2 (08:51→21:37)
[2020-04-04] MEDS: DOXYCYCLINE 100MG/250ML 250 ML IV SCH ×2 (08:51→21:37)
[2020-04-04] MEDS: ZINC SULFATE 220mg CAP or TAB PO SCH (08:51)
[2020-04-04] MEDS: PANTOPRAZOLE 40 MG/10 ML VIAL INJ IV SCH ×2 (08:51→21:58)
[2020-04-04] MEDS: IVABRADINE 5 MG TAB PO SCH ×2 (08:52→21:59)
[2020-04-04] MEDS: FLUCONAZOLE 100 MG TAB PO SCH (08:53)
[2020-04-04] MEDS: DULoxetine HCL 30 MG CAP PO SCH (08:53)
[2020-04-04] MEDS: MAGNESIUM OXIDE 400 MG TAB PO SCH (08:54)
[2020-04-04] MEDS: ENOXAPARIN SOD 100 MG/1 ML SYRINGE SC SCH ×2 (08:54→22:02)
[2020-04-04] MEDS: ASCORBIC ACID 1,000 MG TAB PO SCH (08:54)
[2020-04-04] MEDS: CHOLECALCIFEROL (VITD3) 2,000 UNIT CAP PO SCH (08:54)
[2020-04-04] MEDS: FLORASTOR (S. BOULARDII) 250 MG CAP PO SCH (08:54)
[2020-04-04] MEDS: ACETAMINOPHEN 325 MG TAB PO PRN (08:55)
[2020-04-04] MEDS: FUROSEMIDE 20 MG/2 ML VIAL IV SCH (10:00)
[2020-04-04 23:12] LABS: Basophils # (auto) 0 10 ^3/uL (0-0.2); Basophils % (auto) 0.4 % (0.0-2.0); Eosinophils # (auto) 0 10 ^3/uL (0-0.8); Hematocrit 37.2 % (36.0-46.0); Hemoglobin 12.3 g/dL (12.2-16.2); Lymphocytes # (auto) 0.7 10 ^3/uL (0.4-5.4); Lymphocytes % (auto) 17.4 % (10.0-50.0); Mean Corpuscular Hemoglobin 30.1 pg (28.0-32.0); Mean Corpuscular Hgb Conc. 32.9 g/dL (32.0-36.0); Mean Corpuscular Volume 91.4 fL (80.0-100.0); Monocytes # (auto) 0.2 10 ^3/uL (0-1.3); Monocytes % (auto) 4.9 % (0.0-12.0); Neutrophils # (auto) 3.2 10 ^3/uL (1.6-8.6); Neutrophils % (auto) 77.3 % (37.0-80.0); Platelet Count (auto) 279 10^3/uL (140-450); Red Blood Cells 4.07 10^6/uL (4.0-5.20); Red Cell Distribution Width 16.2 % (11.8-14.3); White Blood Cell 4.1 10^3/uL (4.4-10.8)
[2020-04-04 23:35] LABS: Potassium 3.4 mmol/L (3.5-5.1)
[2020-04-04 23:48] LABS: Albumin 2.6 g/dL (3.4-5.0); Bilirubin, Total 0.3 mg/dL (0.2-1.0); Calcium 8.5 mg/dL (8.5-10.1)
[2020-04-05] MEDS: METHOCARBAMOL 500 MG TAB PO SCH ×5 (00:08→23:45)
[2020-04-05] MEDS: HYDROmorphone HCL 2 MG TAB PO SCH ×4 (00:09→17:52)
[2020-04-05] MEDS: HYDROcodone-ACET 5/325MG TAB PO PRN ×2 (04:36→20:20)
[2020-04-05] MEDS: LEVOTHYROXINE SODIUM 50 MCG TAB PO SCH (04:39)
[2020-04-05 05:00] VITALS: BP 106/55
[2020-04-05] MEDS: ALBUTEROL SULF HFA 90MCG INH 200DOSE IN SCH ×3 (06:10→22:00)
[2020-04-05] MEDS: BUDESONIDE (INHALATION) 180 MCG IH IN SCH ×2 (06:10→22:00)
[2020-04-05] MEDS: SUCRALFATE 1 GM/10 ML ORAL SUSP PO SCH ×4 (06:45→22:00)
[2020-04-05 08:24] LABS: Potassium 3.2 mmol/L (3.5-5.1)
[2020-04-05 08:26] LABS: Hemoglobin 11.9 g/dL (12.2-16.2); Mean Corpuscular Hemoglobin 29.9 pg (28.0-32.0); Mean Corpuscular Hgb Conc. 32.9 g/dL (32.0-36.0); Mean Corpuscular Volume 90.9 fL (80.0-100.0); Platelet Count (auto) 298 10^3/uL (140-450); Red Blood Cells 3.96 10^6/uL (4.0-5.20); Red Cell Distribution Width 16.4 % (11.8-14.3); White Blood Cell 5.9 10^3/uL (4.4-10.8)
[2020-04-05 08:37] LABS: Albumin 2.4 g/dL (3.4-5.0); BUN/Creatinine Ratio 23.3; Bilirubin, Total 0.3 mg/dL (0.2-1.0); CRP High Sensitivity 2.65 mg/dL (< 0.3); Calcium 8.7 mg/dL (8.5-10.1); Magnesium 2.4 mg/dL (1.6-2.6); Total Protein 6.7 g/dL (6.4-8.2)
[2020-04-05 09:00] VITALS: BP 110/59
[2020-04-05] MEDS: FUROSEMIDE 20 MG/2 ML VIAL IV SCH (10:00)
[2020-04-05] MEDS: DexAMETHasone SOD PHOS 10MG/1ML VIAL INJ IV SCH (10:00)
[2020-04-05] MEDS: DOCUSATE SOD 100 MG CAP PO SCH ×2 (10:00→22:00)
[2020-04-05] MEDS: ZINC SULFATE 220mg CAP or TAB PO SCH (10:32)
[2020-04-05] MEDS: DULoxetine HCL 30 MG CAP PO SCH (10:32)
[2020-04-05] MEDS: FLORASTOR (S. BOULARDII) 250 MG CAP PO SCH (10:33)
[2020-04-05] MEDS: CHOLECALCIFEROL (VITD3) 2,000 UNIT CAP PO SCH (10:34)
[2020-04-05] MEDS: MAGNESIUM OXIDE 400 MG TAB PO SCH (10:34)
[2020-04-05] MEDS: ASCORBIC ACID 1,000 MG TAB PO SCH (10:34)
[2020-04-05] MEDS: ENOXAPARIN SOD 100 MG/1 ML SYRINGE SC SCH ×2 (10:34→22:18)
[2020-04-05] MEDS: IVABRADINE 5 MG TAB PO SCH ×2 (10:38→22:22)
[2020-04-05] MEDS: DOXYCYCLINE 100MG/250ML 250 ML IV SCH ×2 (10:41→22:14)
[2020-04-05 11:33] LABS: Basophils % (manual) 0 (0.0-2.0); Blast Cells 0; Metamyelocytes % 0; Promyelocytes % 0
[2020-04-05] MEDS: PANTOPRAZOLE 40 MG/10 ML VIAL INJ IV SCH ×2 (11:53→22:22)
[2020-04-05 13:00] VITALS: BP 118/52
[2020-04-05 13:33] LABS: Band Neutrophils % (manual) 3; Eosinophils % (manual) 1 (0-7); Lymphocytes % (manual) 31 (10.0-50.0); Monocytes % (manual) 7 (0-12); Myelocytes % 1; Reactive Lymphocytes 1
[2020-04-05 17:00] VITALS: BP 92/57
[2020-04-05] MEDS ORDERED: POTASSIUM CHL 20 Meq TABLET PO ONE (18:30)
[2020-04-05 22:00] VITALS: BP 117/67
[2020-04-06] MEDS: HYDROcodone-ACET 5/325MG TAB PO PRN ×4 (00:23→22:39)
[2020-04-06] MEDS: ALPRAZolam 0.25 MG TAB PO PRN (02:08)
[2020-04-06] MEDS: LEVOTHYROXINE SODIUM 50 MCG TAB PO SCH (04:16)
[2020-04-06 05:00] VITALS: BP 95/62
[2020-04-06] MEDS: ALBUTEROL SULF HFA 90MCG INH 200DOSE IN SCH ×3 (05:55→21:44)
[2020-04-06] MEDS: BUDESONIDE (INHALATION) 180 MCG IH IN SCH ×2 (05:55→21:44)
[2020-04-06] MEDS: SUCRALFATE 1 GM/10 ML ORAL SUSP PO SCH ×4 (06:33→22:00)
[2020-04-06] MEDS: METHOCARBAMOL 500 MG TAB PO SCH ×3 (06:48→17:48)
[2020-04-06 08:44] VITALS: BP 103/62
[2020-04-06] MEDS: FUROSEMIDE 20 MG/2 ML VIAL IV SCH (10:00)
[2020-04-06] MEDS: DOCUSATE SOD 100 MG CAP PO SCH ×2 (10:00→21:39)
[2020-04-06] MEDS: DexAMETHasone SOD PHOS 10MG/1ML VIAL INJ IV SCH (10:45)
[2020-04-06] MEDS: DOXYCYCLINE 100MG/250ML 250 ML IV SCH ×2 (10:45→21:39)
[2020-04-06] MEDS: ZINC SULFATE 220mg CAP or TAB PO SCH (10:46)
[2020-04-06] MEDS: PANTOPRAZOLE 40 MG/10 ML VIAL INJ IV SCH ×2 (10:46→21:39)
[2020-04-06] MEDS: POTASSIUM CHL 20 Meq TABLET PO SCH (10:47)
[2020-04-06] MEDS: IVABRADINE 5 MG TAB PO SCH ×2 (10:47→21:40)
[2020-04-06] MEDS: DULoxetine HCL 30 MG CAP PO SCH (10:47)
[2020-04-06] MEDS: FLORASTOR (S. BOULARDII) 250 MG CAP PO SCH (10:47)
[2020-04-06] MEDS: MAGNESIUM OXIDE 400 MG TAB PO SCH (10:48)
[2020-04-06] MEDS: CHOLECALCIFEROL (VITD3) 2,000 UNIT CAP PO SCH (10:48)
[2020-04-06] MEDS: ASCORBIC ACID 1,000 MG TAB PO SCH (10:48)
[2020-04-06] MEDS: ENOXAPARIN SOD 100 MG/1 ML SYRINGE SC SCH ×2 (10:48→21:40)
[2020-04-06] MEDS: HYDROmorphone HCL 2 MG TAB PO SCH ×2 (11:48→17:48)
[2020-04-06 12:00] LABS: Basophils # (auto) 0.1 10 ^3/uL (0-0.2); Basophils % (auto) 0.8 % (0.0-2.0); Eosinophils # (auto) 0.1 10 ^3/uL (0-0.8); Eosinophils % (auto) 1.4 % (0.0-7.0); Hematocrit 32.3 % (36.0-46.0); Hemoglobin 10.8 g/dL (12.2-16.2); Lymphocytes # (auto) 2.5 10 ^3/uL (0.4-5.4); Mean Corpuscular Hemoglobin 30.8 pg (28.0-32.0); Mean Corpuscular Hgb Conc. 33.4 g/dL (32.0-36.0); Mean Corpuscular Volume 92.2 fL (80.0-100.0); Monocytes # (auto) 0.5 10 ^3/uL (0-1.3); Monocytes % (auto) 7.1 % (0.0-12.0); Neutrophils # (auto) 4.1 10 ^3/uL (1.6-8.6); Neutrophils % (auto) 56.7 % (37.0-80.0); Nucleated Red Blood Cells % 0.2 %; Platelet Count (auto) 331 10^3/uL (140-450); Red Cell Distribution Width 16.3 % (11.8-14.3); White Blood Cell 7.3 10^3/uL (4.4-10.8)
[2020-04-06 12:18] LABS: BUN/Creatinine Ratio 23.5; CRP High Sensitivity 0.69 mg/dL (< 0.3); Calcium 8.2 mg/dL (8.5-10.1); Potassium 3.7 mmol/L (3.5-5.1)
[2020-04-06 12:20] VITALS: BP 97/63
[2020-04-06 16:56] VITALS: BP 102/65
[2020-04-06 23:18] VITALS: BP 106/66
[2020-04-07] MEDS: HYDROmorphone HCL 2 MG TAB PO SCH ×3 (00:10→12:56)
[2020-04-07] MEDS: METHOCARBAMOL 500 MG TAB PO SCH ×4 (01:09→18:00)
[2020-04-07] MEDS: ALPRAZolam 0.25 MG TAB PO PRN (02:45)
[2020-04-07 03:14] VITALS: BP 106/66
[2020-04-07] MEDS: HYDROcodone-ACET 5/325MG TAB PO PRN ×2 (04:15→16:30)
[2020-04-07] MEDS: LEVOTHYROXINE SODIUM 50 MCG TAB PO SCH (04:15)
[2020-04-07 05:49] VITALS: BP 108/62
[2020-04-07] MEDS: SUCRALFATE 1 GM/10 ML ORAL SUSP PO SCH ×4 (05:53→22:00)
[2020-04-07] MEDS: BUDESONIDE (INHALATION) 180 MCG IH IN SCH ×2 (06:18→20:11)
[2020-04-07] MEDS: ALBUTEROL SULF HFA 90MCG INH 200DOSE IN SCH ×3 (06:18→20:11)
[2020-04-07 08:51] VITALS: BP 107/61
[2020-04-07] MEDS: DOCUSATE SOD 100 MG CAP PO SCH ×2 (09:32→22:09)
[2020-04-07] MEDS: FUROSEMIDE 20 MG/2 ML VIAL IV SCH (10:16)
[2020-04-07] MEDS: PANTOPRAZOLE 40 MG/10 ML VIAL INJ IV SCH ×2 (10:16→22:04)
[2020-04-07] MEDS: DexAMETHasone SOD PHOS 10MG/1ML VIAL INJ IV SCH (10:16)
[2020-04-07] MEDS: DOXYCYCLINE 100MG/250ML 250 ML IV SCH ×2 (10:16→22:02)
[2020-04-07] MEDS: DULoxetine HCL 30 MG CAP PO SCH (10:17)
[2020-04-07] MEDS: FLORASTOR (S. BOULARDII) 250 MG CAP PO SCH (10:17)
[2020-04-07] MEDS: POTASSIUM CHL 20 Meq TABLET PO SCH (10:17)
[2020-04-07] MEDS: CHOLECALCIFEROL (VITD3) 2,000 UNIT CAP PO SCH (10:17)
[2020-04-07] MEDS: ZINC SULFATE 220mg CAP or TAB PO SCH (10:17)
[2020-04-07] MEDS: ASCORBIC ACID 1,000 MG TAB PO SCH (10:17)
[2020-04-07] MEDS: MAGNESIUM OXIDE 400 MG TAB PO SCH (10:17)
[2020-04-07] MEDS: ENOXAPARIN SOD 100 MG/1 ML SYRINGE SC SCH ×2 (10:18→22:09)
[2020-04-07] MEDS: IVABRADINE 5 MG TAB PO SCH ×2 (11:17→22:09)
[2020-04-07 12:37] VITALS: BP 111/70
[2020-04-07 17:00] VITALS: BP 104/69
[2020-04-07] MEDS ORDERED: HYDROmorphone HCL 2 MG/ML VL IV ONE (18:15)
[2020-04-07 22:00] VITALS: BP 120/62
[2020-04-07] MEDS: HYDROmorphone HCL 2 MG TAB PO PRN (23:15)
[2020-04-08] MEDS: METHOCARBAMOL 500 MG TAB PO SCH ×4 (00:19→18:19)
[2020-04-08] MEDS: ALPRAZolam 0.25 MG TAB PO PRN (01:41)
[2020-04-08] MEDS: LEVOTHYROXINE SODIUM 50 MCG TAB PO SCH (04:04)
[2020-04-08 05:00] VITALS: BP 117/66
[2020-04-08] MEDS: HYDROmorphone HCL 2 MG TAB PO PRN ×3 (05:40→18:20)
[2020-04-08] MEDS: BUDESONIDE (INHALATION) 180 MCG IH IN SCH ×2 (06:03→19:46)
[2020-04-08] MEDS: ALBUTEROL SULF HFA 90MCG INH 200DOSE IN SCH (06:03)
[2020-04-08] MEDS: SUCRALFATE 1 GM/10 ML ORAL SUSP PO SCH ×4 (06:29→22:00)
[2020-04-08 08:47] VITALS: BP 110/70
[2020-04-08] MEDS: IVABRADINE 5 MG TAB PO SCH ×2 (10:00→22:03)
[2020-04-08] MEDS: DOCUSATE SOD 100 MG CAP PO SCH ×2 (10:00→22:00)
[2020-04-08] MEDS: MAGNESIUM OXIDE 400 MG TAB PO SCH (10:00)
[2020-04-08 10:15] LABS: Hematocrit 35.6 % (36.0-46.0); Hemoglobin 11.4 g/dL (12.2-16.2); Mean Corpuscular Hemoglobin 29.8 pg (28.0-32.0); Mean Corpuscular Hgb Conc. 32.1 g/dL (32.0-36.0); Mean Corpuscular Volume 92.6 fL (80.0-100.0); Platelet Count (auto) 410 10^3/uL (140-450); Red Blood Cells 3.84 10^6/uL (4.0-5.20); Red Cell Distribution Width 16.4 % (11.8-14.3); White Blood Cell 12.3 10^3/uL (4.4-10.8)
[2020-04-08 10:21] LABS: Band Neutrophils % (manual) 0; Basophils % (manual) 0 (0.0-2.0); Blast Cells 0; Eosinophils % (manual) 0 (0-7); Promyelocytes % 0; Reactive Lymphocytes 0
[2020-04-08 10:23] LABS: Albumin 2.6 g/dL (3.4-5.0); Calcium 8.4 mg/dL (8.5-10.1); Magnesium 2.2 mg/dL (1.6-2.6); Potassium 3.5 mmol/L (3.5-5.1)
[2020-04-08 10:29] LABS: Bilirubin, Total 0.2 mg/dL (0.2-1.0); CRP High Sensitivity 0.12 mg/dL (< 0.3); Total Protein 6.7 g/dL (6.4-8.2); Uric Acid 4.1 mg/dL (2.6-6.0)
[2020-04-08 11:17] LABS: Lymphocytes % (manual) 38 (10.0-50.0); Metamyelocytes % 2; Monocytes % (manual) 2 (0-12); Myelocytes % 2
[2020-04-08] MEDS: POTASSIUM CHL 20 Meq TABLET PO SCH (11:22)
[2020-04-08] MEDS: CHOLECALCIFEROL (VITD3) 2,000 UNIT CAP PO SCH (11:23)
[2020-04-08] MEDS: DULoxetine HCL 30 MG CAP PO SCH (11:26)
[2020-04-08] MEDS: ASCORBIC ACID 1,000 MG TAB PO SCH (11:27)
[2020-04-08] MEDS: PANTOPRAZOLE 40 MG/10 ML VIAL INJ IV SCH ×2 (11:28→22:02)
[2020-04-08] MEDS: FUROSEMIDE 20 MG/2 ML VIAL IV SCH (11:35)
[2020-04-08] MEDS: DexAMETHasone SOD PHOS 10MG/1ML VIAL INJ IV SCH (11:40)
[2020-04-08] MEDS: ENOXAPARIN SOD 100 MG/1 ML SYRINGE SC SCH ×2 (11:47→22:04)
[2020-04-08] MEDS: DOXYCYCLINE 100MG/250ML 250 ML IV SCH ×2 (11:54→22:02)
[2020-04-08] MEDS: FLORASTOR (S. BOULARDII) 250 MG CAP PO SCH (12:10)
[2020-04-08] MEDS: ZINC SULFATE 220mg CAP or TAB PO SCH (12:12)
[2020-04-08 13:00] VITALS: BP 118/60
[2020-04-08 16:51] VITALS: BP 130/70
[2020-04-08] MEDS: ALBUTEROL SULF HFA 90MCG INH 200DOSE IN PRN (19:47)
[2020-04-08 22:00] VITALS: BP 119/67
[2020-04-09] MEDS: METHOCARBAMOL 500 MG TAB PO SCH ×3 (01:06→11:48)
[2020-04-09] MEDS: HYDROmorphone HCL 2 MG TAB PO PRN (01:19)
[2020-04-09] MEDS: LEVOTHYROXINE SODIUM 50 MCG TAB PO SCH (04:25)
[2020-04-09 06:00] VITALS: BP 102/49
[2020-04-09] MEDS: BUDESONIDE (INHALATION) 180 MCG IH IN SCH (06:42)
[2020-04-09] MEDS: ALBUTEROL SULF HFA 90MCG INH 200DOSE IN PRN (06:42)
[2020-04-09] MEDS: SUCRALFATE 1 GM/10 ML ORAL SUSP PO SCH ×3 (06:43→11:47)
[2020-04-09 08:15] VITALS: BP 107/53
[2020-04-09 08:47] VITALS: BP 107/53
[2020-04-09] MEDS: DULoxetine HCL 30 MG CAP PO SCH (09:32)
[2020-04-09] MEDS: ASCORBIC ACID 1,000 MG TAB PO SCH (09:32)
[2020-04-09] MEDS: ZINC SULFATE 220mg CAP or TAB PO SCH (09:32)
[2020-04-09] MEDS: CHOLECALCIFEROL (VITD3) 2,000 UNIT CAP PO SCH (09:33)
[2020-04-09] MEDS: DOXYCYCLINE 100MG/250ML 250 ML IV SCH (09:35)
[2020-04-09] MEDS: POTASSIUM CHL 20 Meq TABLET PO SCH (09:35)
[2020-04-09] MEDS: FLORASTOR (S. BOULARDII) 250 MG CAP PO SCH (09:35)
[2020-04-09] MEDS: DOCUSATE SOD 100 MG CAP PO SCH (09:36)
[2020-04-09] MEDS: DexAMETHasone SOD PHOS 10MG/1ML VIAL INJ IV SCH (09:43)
[2020-04-09] MEDS: PANTOPRAZOLE 40 MG/10 ML VIAL INJ IV SCH (09:44)
[2020-04-09] MEDS: ENOXAPARIN SOD 100 MG/1 ML SYRINGE SC SCH (09:44)
[2020-04-09] MEDS: FUROSEMIDE 20 MG/2 ML VIAL IV SCH (09:44)
[2020-04-09] MEDS: MAGNESIUM OXIDE 400 MG TAB PO SCH (09:44)
[2020-04-09] MEDS: IVABRADINE 5 MG TAB PO SCH (09:47)
[2020-04-09 13:18] VITALS: BP 112/64
[2020-04-09 15:19] VITALS: BP 112/64
== END 2020-04-09 16:30 | disposition home health service (06) | DRG 871 ==
LOC: EDBD 11:33 → ER 11:33 → TELE 11:34 → TELE-EAST 23:33
PROVIDERS: ADMIT Nurse Practitioner; ATTEND Nurse Practitioner
PROC: XW13325 Transfusion of Convalescent Plasma (Nonautologous) into Peripheral Vein, Percutaneous Approach, New Technology Group 5 (ICD-10-PCS; 2020-03-28)
PROC: XW033E5 Introduction of Remdesivir Anti-infective into Peripheral Vein, Percutaneous Approach, New Technology Group 5 (ICD-10-PCS; principal; 2020-03-30)
DX: A41.89 Other specified sepsis (principal); U07.1 COVID-19; J12.89 Other viral pneumonia; I82.433 Acute embolism and thrombosis of popliteal vein, bilateral; I82.413 Acute embolism and thrombosis of femoral vein, bilateral; J45.909 Unspecified asthma, uncomplicated; I50.9 Heart failure, unspecified; G80.9 Cerebral palsy, unspecified; B37.9 Candidiasis, unspecified; F41.1 Generalized anxiety disorder; G40.909 Epilepsy, unspecified, not intractable, without status epilepticus; I25.10 Atherosclerotic heart disease of native coronary artery without angina pectoris; F32.9 Major depressive disorder, single episode, unspecified; Q96.9 Turner's syndrome, unspecified; Z83.3 Family history of diabetes mellitus; Z74.01 Bed confinement status; Z79.01 Long term (current) use of anticoagulants; Z79.51 Long term (current) use of inhaled steroids; Z79.899 Other long term (current) drug therapy; Z85.6 Personal history of leukemia; Z86.711 Personal history of pulmonary embolism; Z87.891 Personal history of nicotine dependence; Z93.3 Colostomy status; Z99.3 Dependence on wheelchair; Z88.6 Allergy status to analgesic agent; Z88.1 Allergy status to other antibiotic agents; Z88.0 Allergy status to penicillin; Z82.49 Family history of ischemic heart disease and other diseases of the circulatory system
CPT/HCPCS: 36415; 36600; 71045; 80048; 80053; 80164; 81001; 82728; 82805; 82962; 83605; 83615; 83735; 83880; 84100; 84443; 84484; 84550; 85007; 85025; 85027; 85379; 86141; 86850; 86870; 86900; 86901; 87040; 87081; 87086; 87426; 93005; 93970; 94640; 96365; 96366; 96372; 96375; C9113; G0378; J1100; J1642; J3490

== ENCOUNTER 2021-01-20 12:37 | Inpatient (IN) | payer MEDICARE, MEDICAID ==
[~2021-01-20] VITALS: Ht 162.6 cm; Wt 95.5 kg
[~2021-01-20 12:37] MED LIST changes: +ALBUAER3 IN; -ARIP1TAB9 PO; +CYA100I PO; +DICY10CA12 PO; +FURO20TA3 PO; -LEVE500T32 PO; +LEVO50TA7 PO; +METH750T22 PO; +MIRT-66 PO; +POTA10TA51 PO
[2021-01-20 15:17] LABS: Basophils # (auto) 0.1 10 ^3/uL (0-0.2); Basophils % (auto) 0.5 % (0.0-2.0); Eosinophils # (auto) 0.1 10 ^3/uL (0-0.8); Eosinophils % (auto) 0.9 % (0.0-7.0); Hemoglobin 13.3 g/dL (12.2-16.2); Lymphocytes # (auto) 4.3 10 ^3/uL (0.4-5.4); Lymphocytes % (auto) 26.8 % (10.0-50.0); Mean Corpuscular Hemoglobin 28.2 pg (28.0-32.0); Mean Corpuscular Hgb Conc. 32.5 g/dL (32.0-36.0); Mean Corpuscular Volume 86.9 fL (80.0-100.0); Monocytes % (auto) 6.5 % (0.0-12.0); Neutrophils # (auto) 10.4 10 ^3/uL (1.6-8.6); Neutrophils % (auto) 65.3 % (37.0-80.0); Nucleated Red Blood Cells % 0.1 %; Red Blood Cells 4.72 10^6/uL (4.0-5.20); Red Cell Distribution Width 16.4 % (11.8-14.3); White Blood Cell 15.9 10^3/uL (4.4-10.8)
[2021-01-20 15:30] LABS: Alanine Aminotransferase 25 U/L (13-56); Albumin 3.1 g/dL (3.4-5.0); Anion Gap 9 (5-15); Blood Urea Nitrogen 18 mg/dL (7-18); Carbon Dioxide 27 mmol/L (21-32); Chloride 101 mmol/L (98-107); Glucose 86 mg/dL (74-106); Potassium 4.1 mmol/L (3.5-5.1); Sodium 137 mmol/L (136-145)
[2021-01-20 15:35] LABS: Alkaline Phosphatase 78 U/L (45-117); Aspartate Aminotransferase 11 U/L (15-37); BUN/Creatinine Ratio 25.7; Bilirubin, Total 0.2 mg/dL (0.2-1.0); GFR African American 122 mL/min; GFR Non-African American 101 mL/min; Total Protein 8.4 g/dL (6.4-8.2)
[2021-01-20] MEDS ORDERED: MORPHINE SULFATE INJECTION 2 MG/ML SYRG IV PRN (16:00)
[2021-01-20] MEDS ORDERED: NITROGLYCERIN 0.4 MG SL TAB SL PRN (16:00)
[2021-01-20] MEDS ORDERED: ONDANSETRON HCL 4 MG/2 ML VIAL IV PRN (16:00)
[2021-01-20] MEDS: HYDROmorphone HCL 2 MG/ML VL IV PRN ×2 (17:22→20:49)
[2021-01-20] MEDS ORDERED: diphenhdrAMINE HCL 50 MG/1 ML VL IV ONE (18:30)
[2021-01-20] MEDS: levoFLOXacin 500MG 100 ML IV SCH (18:42)
[2021-01-20 20:00] VITALS: BP 126/74
[2021-01-20 22:00] VITALS: BP 126/74
[2021-01-21] MEDS: HYDROmorphone HCL 2 MG/ML VL IV PRN ×9 (00:28→23:49)
[2021-01-21] MEDS ORDERED: PANT40TA2 PO (03:52)
[2021-01-21] MEDS ORDERED: ARIP2TAB PO (03:52)
[2021-01-21] MEDS ORDERED: SENN1TAB14 PO (03:52)
[2021-01-21] MEDS ORDERED: DICY10CA PO (03:52)
[2021-01-21 05:00] VITALS: BP 100/69
[2021-01-21 09:00] VITALS: BP 104/57
[2021-01-21] MEDS: levoFLOXacin 500MG 100 ML IV SCH (09:49)
[2021-01-21] MEDS ORDERED: levoFLOXacin 500MG 100 ML IV SCH (10:00)
[2021-01-21 13:00] VITALS: BP 118/48
[2021-01-21 13:02] LABS: Basophils # (auto) 0.1 10 ^3/uL (0-0.2); Basophils % (auto) 0.5 % (0.0-2.0); Eosinophils # (auto) 0.2 10 ^3/uL (0-0.8); Eosinophils % (auto) 1.5 % (0.0-7.0); Hematocrit 38.1 % (36.0-46.0); Hemoglobin 12.1 g/dL (12.2-16.2); Lymphocytes % (auto) 22.6 % (10.0-50.0); Mean Corpuscular Hemoglobin 27.5 pg (28.0-32.0); Mean Corpuscular Hgb Conc. 31.7 g/dL (32.0-36.0); Mean Corpuscular Volume 86.9 fL (80.0-100.0); Monocytes # (auto) 0.8 10 ^3/uL (0-1.3); Neutrophils # (auto) 9.2 10 ^3/uL (1.6-8.6); Neutrophils % (auto) 69.4 % (37.0-80.0); Red Blood Cells 4.39 10^6/uL (4.0-5.20); Red Cell Distribution Width 16.2 % (11.8-14.3); White Blood Cell 13.3 10^3/uL (4.4-10.8)
[2021-01-21] MEDS: METHOCARBAMOL 500 MG TAB PO SCH ×5 (15:22→21:48)
[2021-01-21 17:18] VITALS: BP 124/67
[2021-01-21] MEDS: NYSTATIN (MOUTH-THROAT) 500,000 UNITS/5 ML SUSP MT SCH ×2 (17:26→21:33)
[2021-01-21] MEDS: IVABRADINE 5 MG TAB PO SCH (17:29)
[2021-01-21] MEDS ORDERED: DICYCLOMINE HCL 10 MG CAP PO PRN (18:00)
[2021-01-21] MEDS ORDERED: METHOCARBAMOL 500 MG TAB PO SCH (18:00)
[2021-01-21] MEDS: APIXABAN 5 MG TAB PO SCH (21:34)
[2021-01-21 22:00] VITALS: BP 129/74
[2021-01-22] MEDS: HYDROmorphone HCL 2 MG/ML VL IV PRN ×7 (03:12→23:38)
[2021-01-22 05:00] VITALS: BP 110/71
[2021-01-22] MEDS: METHOCARBAMOL 500 MG TAB PO SCH ×2 (06:16→21:04)
[2021-01-22] MEDS: LEVOTHYROXINE SODIUM 50 MCG TAB PO SCH (06:16)
[2021-01-22] MEDS: NYSTATIN (MOUTH-THROAT) 500,000 UNITS/5 ML SUSP MT SCH ×4 (06:17→21:03)
[2021-01-22] MEDS: IVABRADINE 5 MG TAB PO SCH ×2 (08:32→17:33)
[2021-01-22 09:00] VITALS: BP 123/57
[2021-01-22] MEDS: PANTOPRAZOLE 40 MG TAB PO SCH (09:48)
[2021-01-22] MEDS: SENNA 8.6 MG TAB PO SCH (09:48)
[2021-01-22] MEDS: MAGNESIUM OXIDE 400 MG TAB PO SCH (09:48)
[2021-01-22] MEDS: DULoxetine HCL 30 MG CAP PO SCH (09:48)
[2021-01-22] MEDS: APIXABAN 5 MG TAB PO SCH ×2 (09:49→21:05)
[2021-01-22] MEDS: FUROSEMIDE 20 MG TAB PO SCH (09:49)
[2021-01-22 10:12] LABS: Basophils # (auto) 0 10 ^3/uL (0-0.2); Basophils % (auto) 0.4 % (0.0-2.0); Eosinophils # (auto) 0.3 10 ^3/uL (0-0.8); Eosinophils % (auto) 2.6 % (0.0-7.0); Hematocrit 37.5 % (36.0-46.0); Lymphocytes # (auto) 2.9 10 ^3/uL (0.4-5.4); Lymphocytes % (auto) 26.4 % (10.0-50.0); Mean Corpuscular Hemoglobin 27.9 pg (28.0-32.0); Mean Corpuscular Hgb Conc. 32.1 g/dL (32.0-36.0); Mean Corpuscular Volume 86.8 fL (80.0-100.0); Monocytes # (auto) 0.7 10 ^3/uL (0-1.3); Neutrophils # (auto) 7.2 10 ^3/uL (1.6-8.6); Neutrophils % (auto) 64.6 % (37.0-80.0); Nucleated Red Blood Cells % 0.1 %; Red Blood Cells 4.32 10^6/uL (4.0-5.20); Red Cell Distribution Width 16.4 % (11.8-14.3); White Blood Cell 11.1 10^3/uL (4.4-10.8)
[2021-01-22 11:16] LABS: Albumin 2.7 g/dL (3.4-5.0); BUN/Creatinine Ratio 27.9; Calcium 8.5 mg/dL (8.5-10.1)
[2021-01-22 11:19] LABS: Bilirubin, Total 0.3 mg/dL (0.2-1.0); Total Protein 7.3 g/dL (6.4-8.2)
[2021-01-22] MEDS ORDERED: PROMETHAZINE W/CODEINE 5 ML ORAL SYRUP PO PRN (12:15)
[2021-01-22 13:00] VITALS: BP 102/75
[2021-01-22] MEDS: HYDROmorphone HCL 2 MG TAB PO PRN (15:48)
[2021-01-22 17:00] VITALS: BP 136/64
[2021-01-22] MEDS: IPRATROPIUM BROM 0.5 MG/2.5ML INH SOL NEB SCH (18:04)
[2021-01-22] MEDS: ACETAMINOPHEN 325 MG TAB PO PRN (21:12)
[2021-01-22 21:27] VITALS: BP 136/64
[2021-01-22 22:00] VITALS: BP 116/75
[2021-01-23] MEDS: ACETAMINOPHEN 325 MG TAB PO PRN (01:05)
[2021-01-23] MEDS: HYDROmorphone HCL 2 MG/ML VL IV PRN ×4 (02:36→20:55)
[2021-01-23] MEDS ORDERED: PROMETHAZINE HCL 25 MG/ML 1ML IV PRN (04:45)
[2021-01-23 05:00] VITALS: BP 118/53
[2021-01-23] MEDS: LEVOTHYROXINE SODIUM 50 MCG TAB PO SCH (05:10)
[2021-01-23] MEDS: HYDROmorphone HCL 2 MG TAB PO PRN ×2 (06:10→17:22)
[2021-01-23] MEDS: IPRATROPIUM BROM 0.5 MG/2.5ML INH SOL NEB SCH ×3 (06:19→18:37)
[2021-01-23] MEDS: NYSTATIN (MOUTH-THROAT) 500,000 UNITS/5 ML SUSP MT SCH ×4 (06:53→20:53)
[2021-01-23] MEDS: IVABRADINE 5 MG TAB PO SCH ×2 (08:19→17:22)
[2021-01-23 09:00] VITALS: BP 115/81
[2021-01-23] MEDS: MAGNESIUM OXIDE 400 MG TAB PO SCH (10:08)
[2021-01-23] MEDS: DULoxetine HCL 30 MG CAP PO SCH (10:08)
[2021-01-23] MEDS: PANTOPRAZOLE 40 MG TAB PO SCH (10:09)
[2021-01-23] MEDS: SENNA 8.6 MG TAB PO SCH (10:09)
[2021-01-23] MEDS: METHOCARBAMOL 500 MG TAB PO SCH ×2 (10:09→20:54)
[2021-01-23] MEDS: APIXABAN 5 MG TAB PO SCH ×2 (10:11→20:54)
[2021-01-23] MEDS: FUROSEMIDE 20 MG TAB PO SCH (10:11)
[2021-01-23 10:26] LABS: Basophils # (auto) 0 10 ^3/uL (0-0.2); Basophils % (auto) 0.4 % (0.0-2.0); Eosinophils # (auto) 0.3 10 ^3/uL (0-0.8); Hematocrit 36.3 % (36.0-46.0); Hemoglobin 11.6 g/dL (12.2-16.2); Lymphocytes # (auto) 3.1 10 ^3/uL (0.4-5.4); Lymphocytes % (auto) 25.1 % (10.0-50.0); Mean Corpuscular Hemoglobin 27.8 pg (28.0-32.0); Mean Corpuscular Hgb Conc. 32.1 g/dL (32.0-36.0); Mean Corpuscular Volume 86.6 fL (80.0-100.0); Monocytes # (auto) 0.7 10 ^3/uL (0-1.3); Monocytes % (auto) 5.5 % (0.0-12.0); Neutrophils # (auto) 8.4 10 ^3/uL (1.6-8.6); Nucleated Red Blood Cells % 0.1 %; Red Blood Cells 4.19 10^6/uL (4.0-5.20); Red Cell Distribution Width 16.3 % (11.8-14.3); White Blood Cell 12.5 10^3/uL (4.4-10.8)
[2021-01-23 10:41] LABS: Albumin 2.6 g/dL (3.4-5.0); Potassium 3.8 mmol/L (3.5-5.1)
[2021-01-23 10:44] LABS: BUN/Creatinine Ratio 26.1; Bilirubin, Total 0.3 mg/dL (0.2-1.0); Total Protein 7.2 g/dL (6.4-8.2)
[2021-01-23 13:00] VITALS: BP 128/74
[2021-01-23] MEDS ORDERED: guaiFENesin 200 MG/10 ML UD GT PRN (14:30)
[2021-01-23 17:00] VITALS: BP 127/73
[2021-01-23 22:00] VITALS: BP 124/79
[2021-01-24] MEDS: HYDROmorphone HCL 2 MG/ML VL IV PRN ×3 (00:03→12:10)
[2021-01-24 05:00] VITALS: BP 112/62
[2021-01-24] MEDS: LEVOTHYROXINE SODIUM 50 MCG TAB PO SCH (05:22)
[2021-01-24] MEDS: NYSTATIN (MOUTH-THROAT) 500,000 UNITS/5 ML SUSP MT SCH ×2 (05:22→12:19)
[2021-01-24 05:53] LABS: Basophils # (auto) 0.1 10 ^3/uL (0-0.2); Basophils % (auto) 0.8 % (0.0-2.0); Eosinophils # (auto) 0.2 10 ^3/uL (0-0.8); Eosinophils % (auto) 2.4 % (0.0-7.0); Hematocrit 36.3 % (36.0-46.0); Hemoglobin 12.2 g/dL (12.2-16.2); Lymphocytes # (auto) 2.6 10 ^3/uL (0.4-5.4); Lymphocytes % (auto) 26.1 % (10.0-50.0); Mean Corpuscular Hemoglobin 28.9 pg (28.0-32.0); Mean Corpuscular Hgb Conc. 33.7 g/dL (32.0-36.0); Mean Corpuscular Volume 85.8 fL (80.0-100.0); Monocytes # (auto) 0.6 10 ^3/uL (0-1.3); Monocytes % (auto) 6.3 % (0.0-12.0); Neutrophils # (auto) 6.4 10 ^3/uL (1.6-8.6); Neutrophils % (auto) 64.4 % (37.0-80.0); Nucleated Red Blood Cells % 0.1 %; Red Blood Cells 4.23 10^6/uL (4.0-5.20); Red Cell Distribution Width 16.3 % (11.8-14.3); White Blood Cell 9.9 10^3/uL (4.4-10.8)
[2021-01-24 05:56] LABS: Potassium 3.9 mmol/L (3.5-5.1)
[2021-01-24 06:16] LABS: Albumin 2.3 g/dL (3.4-5.0); BUN/Creatinine Ratio 27.9; Bilirubin, Total 0.2 mg/dL (0.2-1.0); Calcium 8.3 mg/dL (8.5-10.1)
[2021-01-24] MEDS: IPRATROPIUM BROM 0.5 MG/2.5ML INH SOL NEB SCH ×2 (06:22→11:10)
[2021-01-24] MEDS: HYDROmorphone HCL 2 MG TAB PO PRN ×2 (06:44→15:42)
[2021-01-24] MEDS: IVABRADINE 5 MG TAB PO SCH (08:02)
[2021-01-24 08:05] VITALS: BP 115/69
[2021-01-24 09:01] VITALS: BP 115/69
[2021-01-24] MEDS: DULoxetine HCL 30 MG CAP PO SCH (10:29)
[2021-01-24] MEDS: APIXABAN 5 MG TAB PO SCH (10:30)
[2021-01-24] MEDS: MAGNESIUM OXIDE 400 MG TAB PO SCH (10:30)
[2021-01-24] MEDS: PANTOPRAZOLE 40 MG TAB PO SCH (10:30)
[2021-01-24] MEDS: SENNA 8.6 MG TAB PO SCH (10:31)
[2021-01-24] MEDS: METHOCARBAMOL 500 MG TAB PO SCH (10:31)
[2021-01-24] MEDS: FUROSEMIDE 20 MG TAB PO SCH (10:32)
[2021-01-24 13:00] VITALS: BP 120/77
[2021-01-24] MEDS ORDERED: ALUM & MAG HYDROX-SIMETH LIQ(MAALOX) 30 ML PO ONE (14:15)
[2021-01-24] MEDS ORDERED: PANTOPRAZOLE 40 MG/10 ML VIAL INJ IV ONE (14:15)
[2021-01-24 14:29] VITALS: BP 120/77
[2021-01-24] MEDS ORDERED: APIXABAN 2.5 MG TAB PO SCH (22:00)
[2021-01-24] MEDS ORDERED: ARIPIPRAZOLE 7 MG PO SCH (22:00)
== END 2021-01-24 16:49 | disposition home health service (06) | DRG 864 ==
LOC: ER 12:37 → TELE 15:53 → TELE-WESTW 19:30
PROVIDERS: ADMIT Internal Medicine; ATTEND Internal Medicine
DX: R50.9 Fever, unspecified (principal); I82.403 Acute embolism and thrombosis of unspecified deep veins of lower extremity, bilateral; C92.01 Acute myeloblastic leukemia, in remission; L51.1 Stevens-Johnson syndrome; F11.20 Opioid dependence, uncomplicated; G80.9 Cerebral palsy, unspecified; I25.10 Atherosclerotic heart disease of native coronary artery without angina pectoris; I50.9 Heart failure, unspecified; R07.89 Other chest pain; F32.9 Major depressive disorder, single episode, unspecified; R56.9 Unspecified convulsions; J02.9 Acute pharyngitis, unspecified; J45.909 Unspecified asthma, uncomplicated; Z20.822 Contact with and (suspected) exposure to COVID-19; Z82.49 Family history of ischemic heart disease and other diseases of the circulatory system; Z88.1 Allergy status to other antibiotic agents; Z91.14 Patient's other noncompliance with medication regimen; Z92.21 Personal history of antineoplastic chemotherapy; Z93.3 Colostomy status; Z83.3 Family history of diabetes mellitus; Z93.6 Other artificial openings of urinary tract status; Z99.3 Dependence on wheelchair; Z88.6 Allergy status to analgesic agent; Z88.0 Allergy status to penicillin
CPT/HCPCS: 36415; 71045; 80053; 84484; 85025; 87070; 87081; 87426; 87804; 87880; 93005; 94640; 96365; 96375; 97163; C9113; G0378; J1956

== ENCOUNTER → 2023-01-23 | Outpatient (CLI) | payer MEDICARE, MEDICAID ==
[~2023-01-23] MED LIST changes: -ALPR0.25 PO; +ARIP2TAB PO; -CYA100I PO; -CYCL1POW25 XX; +DICY10CA PO; -DICY10CA12 PO; -DULO60CA PO; +DULO60CA41 PO; +DexAMETHasone SOD PHOS 10MG/1ML VIAL INJ ONE; +ETOMIDATE (2MG/ML) 20ML VIAL IV ONE; +METH-1182 PO; -METH750T22 PO; +MIDAZOLAM HCL 2MG/2ML 2ml VIAL (1mg/ml) ONE; -MIRT-66 PO; +MORPHINE SULF PF 5 MG/10 ML VIAL ONE; -OME20T PO; +ONDANSETRON HCL 4 MG/2 ML VIAL ONE; -OXYC1CAP5 PO; +PANT40TA2 PO; +ROCURONIUM 10MG/ML 10ML VIAL IV ONE; +SENN1TAB14 PO; +SODIUM CHLORIDE LOCK 0 ML ONE; -TIOT1AER2 IN; +fentaNYL CITRATE 100 MCG/2 ML VL ONE
== END | disposition home or self-care (01) ==
LOC: RT 10:16
PROVIDERS: ATTEND Internal Medicine Pulmonary Disease
DX: J45.50 Severe persistent asthma, uncomplicated (principal)
CPT/HCPCS: 94060; 94727; 94729